=== PATIENT | male | born 1990 | race Caucasian/White ===

== ENCOUNTER 2019-07-26 06:19 | Emergency (ER) | payer SELFPAY ==
[~2019-07-26] VITALS: Ht 177.8 cm; Wt 101.1 kg
[2019-07-26 06:27] VITALS: BP 146/109
--- NOTE | 2019-07-26 07:13 | NUR ---
REPORT RECEIVED FROM JOSE CUNNINGHAM. ASSUMED CARE
--- NOTE | 2019-07-26 07:14 | NUR ---
REPORT GIVEN TO JOSE KIRKPATRICK. PLAN OF CARE DISCUSSED
== END 2019-07-26 07:42 | disposition home or self-care (01) ==
LOC: ED 06:48
DX: K12.0 Recurrent oral aphthae (principal)
CPT/HCPCS: 99283